=== PATIENT | female | born 1970 ===

== ENCOUNTER 2021-03-17 10:47 | Emergency (ER) | payer OTHER ==
[~2021-03-17] VITALS: Ht 157.5 cm; Wt 79.8 kg
[2021-03-17] MEDS ORDERED: NASAL MIST126 ML (10:58)
[2021-03-17] MEDS ORDERED: PYRIDIUM100 MG PO (13:58)
[2021-03-17] MEDS ORDERED: CIPRO500 MG PO (13:58)
== END 2021-03-17 14:08 | disposition home or self-care (01) ==
LOC: ER 10:47
DX: N39.0 Urinary tract infection, site not specified (principal); B96.4 Proteus (mirabilis) (morganii) as the cause of diseases classified elsewhere; R31.0 Gross hematuria; R30.0 Dysuria